=== PATIENT | male | born 1945 | race Hispanic/Latino ===

== ENCOUNTER 2020-07-30 10:41 | Outpatient (CLI) | payer MEDICARE, MEDICAID ==
--- NOTE | 2020-07-30 11:45 | RAD ---
RADIOGRAPH CHEST 2 VIEW: DATE: 07/30/2020 HISTORY: 75-year-old male with "type 2 diabetes mellitus without complications" FINDINGS: The thoracic aorta is tortuous and ectatic. There is no evidence of airspace density, pulmonary edema , or pneumothorax. There is no cardiomegaly or pleural effusion. IMPRESSION: 1) No acute cardiopulmonary findings. 2) ectasia of thoracic aorta.
== END 2020-07-30 10:42 | disposition home or self-care (01) ==
LOC: BICRAD 10:41
PROVIDERS: ATTEND Family Medicine
DX: E11.9 Type 2 diabetes mellitus without complications (principal); I77.810 Thoracic aortic ectasia
CPT/HCPCS: 71046